=== PATIENT | female | born 1985 | race Hispanic/Latino ===

== ENCOUNTER → 2025-01-21 13:47 | Outpatient (CLI) | payer SELFPAY ==
--- NOTE | 2025-01-21 13:56 | DI.RAD.S_ITS ---
PROCEDURE: XR CHEST 2V INDICATIONS: [place] tb screen TECHNIQUE: 2 views of the chest were acquired. COMPARISON: None. FINDINGS: Heart, mediastinum and pulmonary vasculature: Heart is normal in size and configuration. Mediastinum is unremarkable. Pulmonary vascular is normal. Lungs: Scattered tiny calcified granulomas in the perihilar regions noted Pleural spaces: Normal-no effusions or pneumothorax. Bones and soft tissues: Normal IMPRESSION: No acute disease. 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 Old healed tuberculosis is not excluded however Dictated by: Bradly Puente M.D. on 01/22/2025 at 10:12 Approved by: Bradly Puente M.D. on 01/22/2025 at 10:13
== END ==
PROVIDERS: Referring Provider Internal Medicine; Visit Provider Internal Medicine
DX: Z11.1 Encounter for screening for respiratory tuberculosis (principal); J98.4 Other disorders of lung
CPT/HCPCS: 71046